=== PATIENT | male | born 1995 | race Caucasian/White ===

== ENCOUNTER 2018-07-20 07:14 | Emergency (ER) | payer SELFPAY | END 2018-07-20 08:30 | disposition home or self-care (01) | LOC: FTE 07:14 | DX: S01.111A Laceration without foreign body of right eyelid and periocular area, initial encounter (principal); W21.05XA Struck by basketball, initial encounter; Y92.310 Basketball court as the place of occurrence of the external cause | CPT/HCPCS: 12011; 99282-25 ==

== ENCOUNTER 2018-07-23 18:27 | Emergency (ER) | payer SELFPAY | END 2018-07-23 21:48 | disposition left against medical advice (07) | LOC: FTE 18:27 | DX: Z53.21 Procedure and treatment not carried out due to patient leaving prior to being seen by health care provider (principal) ==

== ENCOUNTER 2018-07-29 22:58 | Emergency (ER) | payer SELFPAY | END 2018-07-30 01:48 | disposition home or self-care (01) | LOC: FTE 22:58 | DX: Z48.02 Encounter for removal of sutures (principal) | CPT/HCPCS: 99281 ==